=== PATIENT | female | born 1970 | race Caucasian/White ===

== ENCOUNTER 2019-08-24 13:05 | Outpatient (CLI) | payer OTHER, SELFPAY ==
--- NOTE | ~2019-08-24 | XR_ITS ---
XR foot LT standing 2V DATE: 08/24/2019 13:28 INDICATION: Left foot pain TECHNIQUE: AP and lateral standing views COMPARISON: None FINDINGS: No fracture or dislocation, periosteal reaction or bone destruction. IMPRESSION: Negative Reviewed, dictated and finalized at location A. IMPRESSION: Negative
== END 2019-08-24 13:06 | disposition home or self-care (01) ==
LOC: ANHIMG 13:11
PROVIDERS: PCP Nurse Practitioner; Visit Provider Nurse Practitioner
DX: M79.672 Pain in left foot (principal)
CPT/HCPCS: 73620

== ENCOUNTER 2019-10-05 11:40 | Outpatient (CLI) | payer OTHER, SELFPAY | END 2019-10-05 11:41 | disposition home or self-care (01) | LOC: ANHLAB 11:42 | PROVIDERS: PCP Nurse Practitioner; Visit Provider Family Medicine | DX: R30.0 Dysuria (principal) | CPT/HCPCS: 87086; 87088 ==

== ENCOUNTER 2020-05-24 12:29 | Outpatient (CLI) | payer OTHER, SELFPAY ==
[2020-05-24 13:20] LABS: Hemoglobin 14.2 g/dL (12.0-15.0); Mean Corpuscular HGB Conc 33.8 g/dl (32-36); Mean Corpuscular Hemoglobin 30.7 pg (26-34); Mean Corpuscular Volume 90.9 fl (80-100); Mean Platelet Volume 11.1 fl (7.4-10.4); Platelet Count Result 225 k/mm3 (150-375); Red Blood Count 4.62 M/mm3 (4.2-5.4); White Blood Count 6.2 K/mm3 (4.5-10.0)
[2020-05-24 13:29] LABS: Cholesterol 178 mg/dL (0-200); HDL Direct 79 mg/dL; Triglycerides 81 mg/dL (<150)
[2020-05-24 13:35] LABS: Alanine Aminotransferase 30 U/L (4-35); Albumin Level 4.6 g/dL (3.5-5.1); Alkaline Phosphatase 49 U/L (38-126); Anion Gap 8 mmol/L (8-16); Aspartate Amino Transferase 39 U/L (14-36); Bilirubin,Total 0.5 mg/dL (0.2-1.3); Blood Urea Nitrogen 14 mg/dL (7-17); Calcium 9.2 mg/dL (8.4-10.2); Carbon Dioxide 28 mmol/L (22-30); Chloride 104 mmol/L (98-107); Estimated Glomerular Filt Rate > 60; Glucose 72 mg/dL (65-105); Sodium 140 mmol/L (137-145)
[2020-05-24 13:40] LABS: LDL Cholesterol Direct 72 mg/dL
[2020-05-24 14:07] LABS: Vitamin D 25 Hydroxy 55.3 ng/mL
[2020-05-24 14:08] LABS: Free T4 Free Thyroxine 1.06 ng/mL (0.78-2.19)
== END 2020-05-24 12:30 | disposition home or self-care (01) ==
PROVIDERS: PCP Nurse Practitioner; Visit Provider Internal Medicine Endocrinology, Diabetes & Metabolism
DX: E55.9 Vitamin D deficiency, unspecified (principal); E05.90 Thyrotoxicosis, unspecified without thyrotoxic crisis or storm; Z13.6 Encounter for screening for cardiovascular disorders
CPT/HCPCS: 36415; 80053; 80061; 82306; 84439; 84443; 85027

== ENCOUNTER 2020-09-11 12:03 | Outpatient (CLI) | payer OTHER, SELFPAY ==
--- NOTE | ~2020-09-11 | MM_ITS ---
EXAMINATION: MM screening [facility] BI w roxanna HISTORY: Screening TECHNIQUE: Craniocaudal and mediolateral oblique 3-D tomosynthesis images were obtained and synthetic 2-D images were generated. CAD analysis was submitted and interpreted. COMPARISON: No prior mammogram is available for comparison at this institution. BREAST PARENCHYMAL COMPOSITION: The breasts are heterogeneously dense, which may obscure small masses . FINDINGS: There is no evidence of suspicious mass, calcification, or architectural distortion to sugg est malignancy in either breast. There has been no suspicious interval change. IMPRESSION: 1. No mammographic evidence of malignancy. 2. Recommend routine screening mammography in one year. BI-RADS Category 1: Negative Reviewed, dictated and finalized at location A.
== END 2020-09-11 12:04 | disposition home or self-care (01) ==
LOC: ANHIMG 12:04
PROVIDERS: PCP Nurse Practitioner; Visit Provider Nurse Practitioner Family
DX: Z12.31 Encounter for screening mammogram for malignant neoplasm of breast (principal)
CPT/HCPCS: 77063; 77067

== ENCOUNTER 2021-02-14 02:47 | Day surgery (SDC) | payer OTHER, SELFPAY ==
[2021-01-29 13:33] VITALS: BMI 20.8
--- NOTE | 2021-02-13 14:42 | P.PNAN_ITS ---
Anes - Initial Pre Proc Eval Procedure: Operation Date: 02/14/21 09:30 Proposed Procedures p Screening Colonoscopy - Jose Luis Luna MD Date/Time: 02/13/21 14:42 Surgeon: Jose Luis Luna MD Pre Op Diagnosis: Neoplasm Screening Patient Data Age: 50 Gender: F Height: 1.78 m Weight: 66 kg Allergies Allergy/AdvReac Type Severity Reaction Status Date / Time clindamycin Allergy Unknown Unknown Verified 02/14/21 08:51 Home Medications Medication Instructions Recorded Confirmed Type multivitamin 1 tablet PO DAILY 05/31/19 02/14/21 History mirabegron 25 mg tablet,extended 25 mg PO DAILY 10/31/19 02/14/21 History release 24 hr omeprazole magnesium 20 mg 20 mg PO DAILY #90 tablet 07/29/20 02/14/21 Rx tablet,delayed release rizatriptan 10 mg disintegrating 10 mg PO .COMPLEX PRN #30 tablet 07/29/20 02/14/21 Rx tablet L norgest/E estradiol-E estrad 1 tablet PO DAILY #91 ea 11/29/20 02/14/21 Rx 0.15 mg-30 mcg (84)/10 mcg(7) tabs,3mos methimazole 5 mg tablet 5 mg PO DAILY #90 tablet 12/02/20 02/14/21 Rx naproxen 500 mg tablet 500 mg PO BID #30 tablet 12/23/20 02/14/21 Rx Patient hx anesthesia problems: none Family hx anesthesia problems: none Results Review: All pre-operative results and documents have been reviewed as part of the pre-operative evaluation. [facility] Past Medical History Medical History (Updated 02/14/21 @ 08:58 by Jose Luis Luna MD) Anxiety GERD without esophagitis Hyperthyroidism (~2003) Follows with endocrine Lateral epicondylitis of right elbow Migraines OAB (overactive bladder) Follows with urology - Dr Bautista Peroneal tendinitis of left lower leg Vaginal delivery x2 Vision loss Weight loss Surgical History Surgical History Hx of cholecystectomy (~1993) [place] teeth extracted Family History Family History Grandparent Cerebrovascular accident Carcinoma of colon Other Afib Social History Social History Smoking status: Never smoker Alcohol intake: current Drinks per week: 7 Alcohol use details: wine with dinner Substance use: never Substance use type: does not use Living arrangements: with family 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[employer] Gender identity (if verbalized by the patient): Female Spiritual care concerns: No Anes - Eval Final PreProcedure Day of Procedure 02/13/21 14:42 Patient weight: normal Heart: regular rate and rhythm Lungs: clear to auscultation and normal air movement Airway: Mallampati scale class II Neurological: alert and oriented Last oral intake: >/= 8 hours ASA classification: II Emergent: no Anesthetic plan: proceed Anesthesia type and monitoring: general GIVS and standard monitoring Results Review: All pre-operative results and documents have been reviewed as part of the pre-operative evaluation. Informed Consent: The patient's anesthetic plan and its attendant risks and benefits were discussed with the patient/family/POA. Questions were solicited and answers provided to the satisfaction of the patient/family/POA.
[2021-02-14] MEDS: LACTATED RINGERS 1,000 ML 150 ML IV CONT (08:45)
[2021-02-14 08:53] VITALS: BP 112/78; PULSE 73; RESP 16; TEMP 37; O2SAT 100; BMI 20.8
--- NOTE | 2021-02-14 08:56 | WPDGICN ---
Assessment and Plan Assessment and plan (1) Family history of colonic polyps: Code(s): Z83.71 - Family history of colonic polyps Status: Acute Assessment and Plan: Patient presents for screening colonoscopy. Family history is significant father had colon polyps grandmother had colon cancer. Further recommendations will be given after endoscopy. GI Consult Note Consult date/time: 02/14/21 08:56 HPI: Shivani Mondragon is a 50 year old female Presents for screening colonoscopy. Patient's current weight appetite bowel movements are normal. She denies abdominal pain. She has had no bleeding. She has never had a previous exam. Patient's family history is significant her father had colon polyps her grandmother had colon cancer. She presents today for neoplasia screening. Review of Systems Review of Systems: All systems reviewed & are unremarkable except as noted in HPI and below PMFSH Past Medical History Medical History (Updated 02/14/21 @ 08:58 by Jose Luis Luna MD) Anxiety GERD without esophagitis Hyperthyroidism (~2003) Follows with endocrine Lateral epicondylitis of right elbow Migraines OAB (overactive bladder) Follows with urology - Dr Bautista Peroneal tendinitis of left lower leg Vaginal delivery x2 Vision loss Weight loss Surgical History Surgical History Hx of cholecystectomy (~1993) [place] teeth extracted Family History Family History Grandparent Cerebrovascular accident Carcinoma of colon Other Afib Social History Social History Smoking status: Never smoker Alcohol intake: current Drinks per week: 7 Alcohol use details: wine with dinner Substance use: never Substance use type: does not use Living arrangements: with family 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[employer] Gender identity (if verbalized by the patient): Female Spiritual care concerns: No Meds Home Medications and Allergies Home Medications Medication Instructions Recorded Confirmed Type multivitamin 1 tablet PO DAILY 05/31/19 02/14/21 History mirabegron 25 mg tablet,extended 25 mg PO DAILY 10/31/19 02/14/21 History release 24 hr omeprazole magnesium 20 mg 20 mg PO DAILY #90 tablet 07/29/20 02/14/21 Rx tablet,delayed release rizatriptan 10 mg disintegrating 10 mg PO .COMPLEX PRN #30 tablet 07/29/20 02/14/21 Rx tablet L norgest/E estradiol-E estrad 1 tablet PO DAILY #91 ea 11/29/20 02/14/21 Rx 0.15 mg-30 mcg (84)/10 mcg(7) tabs,3mos methimazole 5 mg tablet 5 mg PO DAILY #90 tablet 12/02/20 02/14/21 Rx naproxen 500 mg tablet 500 mg PO BID #30 tablet 12/23/20 02/14/21 Rx Allergies Allergy/AdvReac Type Severity Reaction Status Date / Time clindamycin Allergy Unknown Unknown Verified 02/14/21 08:51 Vital Signs Vital Signs - 24 hr 02/14/21 08:53 Temperature 98.6 F Pulse Rate 73 Respiratory Rate 16 Blood Pressure 112/78 Pulse Oximetry 100 Exam Narrative: Physical exam reveals patient to be alert. Vital signs stable. HEENT exam is unremarkable. Patient is anicteric. Lungs are clear to auscultation and percussion. Heart is without murmur or extra sounds. Abdominal exam bowel sounds are present soft nontender with no organomegaly. Digital external rectal exam is normal.
[2021-02-14 09:49] VITALS: BP 85/60; PULSE 68; RESP 36; O2SAT 100
[2021-02-14 09:59] VITALS: BP 107/71; PULSE 65; RESP 21; O2SAT 100
[2021-02-14 10:09] VITALS: BP 109/71; PULSE 72; RESP 22; O2SAT 100
== END 2021-02-14 10:11 | disposition home or self-care (01) ==
PROVIDERS: PCP Nurse Practitioner; Visit Provider Internal Medicine Gastroenterology
PROC: 0DJD8ZZ Inspection of Lower Intestinal Tract, Via Natural or Artificial Opening Endoscopic (ICD-10-PCS; CPT 45378; principal; 2021-02-14 09:30)
DX: Z12.11 Encounter for screening for malignant neoplasm of colon (principal); Z83.71 Family history of colonic polyps; K64.8 Other hemorrhoids; F41.9 Anxiety disorder, unspecified; K21.9 Gastro-esophageal reflux disease without esophagitis; N32.81 Overactive bladder; E05.90 Thyrotoxicosis, unspecified without thyrotoxic crisis or storm
CPT/HCPCS: 45378; J2704; J7120

== ENCOUNTER 2021-03-10 11:26 | Outpatient (CLI) | payer OTHER, SELFPAY ==
[2021-03-10 11:50] LABS: Alanine Aminotransferase 32 U/L (4-35); Albumin Level 4.2 g/dL (3.5-5.1); Alkaline Phosphatase 43 U/L (38-126); Anion Gap 4 mmol/L (8-16); Aspartate Amino Transferase 35 U/L (14-36); Bilirubin,Total 0.7 mg/dL (0.2-1.3); Blood Urea Nitrogen 12 mg/dL (7-17); Calcium 9.2 mg/dL (8.4-10.2); Carbon Dioxide 24 mmol/L (22-30); Chloride 106 mmol/L (98-107); Estimated Glomerular Filt Rate > 60; Glucose 121 mg/dL (65-110); Potassium 4.1 mmol/L (3.4-5.0); Sodium 134 mmol/L (137-145)
[2021-03-10 12:14] LABS: Free T4 Free Thyroxine 1.12 ng/mL (0.78-2.19)
== END 2021-03-10 11:27 | disposition home or self-care (01) ==
LOC: ANHLAB 11:28
PROVIDERS: PCP Nurse Practitioner; Visit Provider Internal Medicine Endocrinology, Diabetes & Metabolism
DX: E05.90 Thyrotoxicosis, unspecified without thyrotoxic crisis or storm (principal)
CPT/HCPCS: 36415; 80053; 84439

== ENCOUNTER 2021-04-07 11:55 | Outpatient (CLI) | payer OTHER, SELFPAY ==
[2021-04-07 13:10] LABS: HIV 1/2 Ab P24 Ag 30.5
[2021-04-07 14:04] LABS: HIV 1/2 Ab P24 Ag Result Reactive (Negative)
[2021-04-09 08:48] LABS: HIV 1 2 Ag Ab 4th Gen w Rflxs Non-reactive (Non-reactive)
== END 2021-04-07 11:56 | disposition home or self-care (01) ==
LOC: ANHLAB 11:57
PROVIDERS: PCP Nurse Practitioner; Visit Provider Obstetrics & Gynecology
DX: B37.9 Candidiasis, unspecified (principal)
CPT/HCPCS: 36415; 83036; 86703; 87389; G0432

== ENCOUNTER 2021-04-25 08:23 | Outpatient (CLI) | payer OTHER, SELFPAY ==
[2021-04-25 09:48] LABS: Thyroid Stimulating Hormone 0.552 uIU/mL (0.465-4.680)
[2021-04-29 14:31] LABS: Triiodothyronine T3 Free 3.4 pg/mL (2.3-4.2)
== END 2021-04-25 08:24 | disposition home or self-care (01) ==
LOC: ANHLAB 08:25
PROVIDERS: PCP Nurse Practitioner; Visit Provider Internal Medicine Endocrinology, Diabetes & Metabolism
DX: E05.90 Thyrotoxicosis, unspecified without thyrotoxic crisis or storm (principal); E04.9 Nontoxic goiter, unspecified
CPT/HCPCS: 36415; 84439; 84443; 84481

== ENCOUNTER 2021-08-12 15:10 | Outpatient (CLI) | payer OTHER, SELFPAY ==
[2021-08-12 16:02] LABS: Thyroid Stimulating Hormone < 0.015 uIU/mL (0.465-4.680)
[2021-08-12 17:00] LABS: Free T4 Free Thyroxine 3.88 ng/mL (0.78-2.19)
[2021-08-14 12:34] LABS: Triiodothyronine T3 Free 10.9 pg/mL (2.3-4.2)
== END 2021-08-12 15:11 | disposition home or self-care (01) ==
LOC: ANHLAB 15:11
PROVIDERS: PCP Family Medicine; Visit Provider Internal Medicine Endocrinology, Diabetes & Metabolism
DX: E05.00 Thyrotoxicosis with diffuse goiter without thyrotoxic crisis or storm (principal); E04.9 Nontoxic goiter, unspecified
CPT/HCPCS: 36415; 84439; 84443; 84481

== ENCOUNTER 2021-08-16 23:20 | Emergency (ER) | payer OTHER, SELFPAY ==
[2021-08-16 23:22] VITALS: BP 108/60; PULSE 100; RESP 20; TEMP 36.3; O2SAT 99
[2021-08-16 23:45] LABS: Basophils Percent Auto 0.5 % (0.2-1.2); Eosinophils Absolute Auto 0.1 K/mm3 (0-0.3); Immature Granulocyte Absolute 0.01 K/mm3 (0.00-0.031); Immature Granulocyte Percent A 0.3 % (0-0.5); Lymphocytes Absolute Auto 0.59 K/mm3 (0.9-3.2); Lymphocytes Percent Auto 14.8 % (18.3-44.2); Mean Corpuscular HGB Conc 34.2 g/dl (32-36); Mean Corpuscular Hemoglobin 30.4 pg (26-34); Mean Platelet Volume 10.6 fl (7.4-10.4); Monocytes Absolute Auto 0.3 K/mm3 (0.1-0.6); Monocytes Percent Auto 8.3 % (2.6-8.5); Neutrophils Percent Auto 74.1 % (45.5-73.1); Platelet Count Result 167 k/mm3 (150-375); Red Blood Count 4.27 M/mm3 (4.2-5.4)
[2021-08-16 23:46] LABS: Appearance Urine Clear (Clear); Bilirubin Urine Negative (Negative); Blood Urine Trace-lysed (Negative); Color Urine Yellow (Yellow); Glucose Urine UA Negative (Negative); Ketones Urine Trace mg/dL (Negative); Leukocyte Esterase Ur Trace LEU/UL (Negative); Nitrate Urine Positive (Negative); Protein Urine Negative (Negative); Specific Grav Ur 1.015 (1.001-1.035); Urobilinogen Urine 0.2 mg/dL (<2.0)
[2021-08-16 23:51] LABS: Bacteria Urine Trace /hpf; Mucus Urine Rare /lpf; RBC Urine 0-2 /hpf (0-2); Squamous Epithelial Cell Urine Few /hpf (Few)
[2021-08-16 23:58] LABS: Alanine Aminotransferase 44 U/L (6-35); Albumin Level 3.7 g/dL (3.5-5.1); Alkaline Phosphatase 55 U/L (38-126); Anion Gap 4 mmol/L (8-16); Aspartate Amino Transferase 47 U/L (14-36); Bilirubin,Total 0.8 mg/dL (0.2-1.3); Blood Urea Nitrogen 16 mg/dL (7-17); Calcium 8.6 mg/dL (8.4-10.2); Carbon Dioxide 25 mmol/L (22-30); Chloride 107 mmol/L (98-107); Estimated Glomerular Filt Rate > 60; Glucose 102 mg/dL (65-110); Lipase 109 U/L (23-300); Potassium 3.9 mmol/L (3.4-5.0); Sodium 136 mmol/L (137-145)
[2021-08-16 23:59] LABS: Add Urine Microscopic? YES
[2021-08-17] MEDS: ONDANSETRON INJ 4 MG/2 ML VIAL IV PUSH (00:46)
[2021-08-17] MEDS: SODIUM CHLORIDE 0.9% IV 1,000 ML 999 ML IV CONT (00:46)
[2021-08-17] MEDS: DICYCLOMINE HCL 10 MG CAPSULE 20 MG PO (01:15)
[2021-08-17 01:19] VITALS: BP 108/69; PULSE 91; RESP 16; O2SAT 100
--- NOTE | 2021-08-17 01:43 | ED.ABDPAIN ---
HPI - Abdominal Pain General Chief Complaint: Abdominal Pain Stated Complaint: Abd pain, n/v Time Seen by Provider: 08/17/21 00:29 Source: patient History of Present Illness HPI narrative: Patient presents with abdominal pain nausea vomiting and diarrhea. Patient ports symptoms started this morning and gotten progressively worse. Pain is across her entire abdomen is crampy, constant, no clear aggravating or alleviating factors and radiates to her back. Symptoms been associated again with nausea vomiting and diarrhea has been no blood bile or melena. Reports there is a boil order the city she lives and my recommendation is that they boil water patient has been doing so but continue to drink the water and is unsure if her symptoms are related to that. She has some neighbors and friends that were doing the same thing but got sick after drinking water as well. Patient denies any dysuria or increased urinary frequency but does report a foul odor to her urine. Related Data Home Medications Medication Instructions Recorded Confirmed multivitamin 1 tablet PO DAILY 05/31/19 06/24/21 mirabegron 50 mg tablet,extended 50 mg PO DAILY 06/23/21 06/24/21 release 24 hr Allergies Allergy/AdvReac Type Severity Reaction Status Date / Time clindamycin Allergy Unknown Unknown Verified 08/17/21 00:46 Review of Systems Review of Systems: CONSTITUTIONAL: Denies fever, chills, or sweats. EYES: Denies visual changes, redness, or discharge. ENT: Denies rhinorrhea, congestion, sore throat, or otalgia. CARDIOVASCULAR: Denies chest pain, palpitations, or edema. RESPIRATORY: Denies cough or dyspnea. GASTROINTESTINAL: Abdominal pain with nausea vomiting diarrhea GENITOURINARY: Denies dysuria or hematuria. SKIN: Denies rash or itching. MUSCULOSKELETAL: Denies back pain, joint pain, or myalgia. NEUROLOGIC: Denies headache, numbness, dizziness, or weakness. PSYCHIATRIC: Denies anxiety or depression. All systems reviewed & are unremarkable except as noted in HPI and below PMFSH Past Medical History Medical History Anxiety Family history of colonic polyps GERD without esophagitis Hyperthyroidism (~2003) Follows with endocrine Lateral epicondylitis of right elbow Migraines OAB (overactive bladder) Follows with urology - Dr Bautista Peroneal tendinitis of left lower leg Vaginal delivery x2 Vision loss Weight loss Surgical History Surgical History H/O colonoscopy Hx of cholecystectomy (~1993) [place] teeth extracted Family History Family History Grandparent Cerebrovascular accident Carcinoma of colon Other Afib Social History Social History Smoking status: Never smoker Alcohol intake: current Drinks per week: 7 Alcohol use details: wine with dinner Substance use: never Substance use type: does not use 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 HEAD: Normocephalic, atraumatic. EYES: PERRLA and EOMI. ENT: Nares clear, no rhinorrhea or epistaxis. Mucous membranes moist. NECK: Supple. No masses. No JVD ABDOMEN: Mild diffuse abdominal pain no rebound or guarding soft, nondistended EXTREMITIES: Normal range of motion. No edema. SKIN: Warm, dry, no rash. NEURO: No focal deficits. Alert and oriented x3. PSYCH: Normal mood and affect. Course Reevaluation(s) Reevaluation #1: Patient ports feeling much improved results and plan reviewed with patient. Patient is comfortable with outpatient plan. Date: 08/17/21 Time: :46 Vital Signs Vital signs: Vital Signs Temperature 36.3 C L 08/16/21 23:22 Pulse
[2021-08-17 02:17] VITALS: BP 102/65; PULSE 87; RESP 16; O2SAT 100
[2021-08-17] MEDS: CEPHALEXIN 500 MG CAPSULE PO (02:17)
== END 2021-08-17 02:18 | disposition home or self-care (01) ==
PROVIDERS: Emergency Provider Emergency Medicine; PCP Family Medicine
DX: N39.0 Urinary tract infection, site not specified (principal); R11.2 Nausea with vomiting, unspecified; R10.84 Generalized abdominal pain; R19.7 Diarrhea, unspecified; E05.90 Thyrotoxicosis, unspecified without thyrotoxic crisis or storm; N32.81 Overactive bladder; K21.9 Gastro-esophageal reflux disease without esophagitis
CPT/HCPCS: 36415; 80053; 81001; 81025; 83690; 85025; 87077; 87086; 87186; 96361; 96374; 99284; A9270; J2405; J7030

== ENCOUNTER 2021-08-21 11:38 | Outpatient (CLI) | payer OTHER, SELFPAY ==
[2021-08-21 12:58] LABS: Thyroid Stimulating Hormone < 0.015 uIU/mL (0.465-4.680)
== END 2021-08-21 11:39 | disposition home or self-care (01) ==
LOC: ANHLAB 11:40
PROVIDERS: PCP Family Medicine; Visit Provider Internal Medicine Endocrinology, Diabetes & Metabolism
DX: E05.90 Thyrotoxicosis, unspecified without thyrotoxic crisis or storm (principal)
CPT/HCPCS: 36415; 84443; 84481

== ENCOUNTER 2021-08-30 07:12 | Outpatient (CLI) | payer OTHER, SELFPAY ==
[2021-08-30 07:57] LABS: Basophils Percent Auto 0.8 % (0.2-1.2); Eosinophils Absolute Auto 0.1 K/mm3 (0-0.3); Eosinophils Percent Auto 3.1 % (0-4.4); Hematocrit 37.9 % (37.0-47.0); Hemoglobin 12.7 g/dL (12.0-15.0); Lymphocytes Absolute Auto 1.42 K/mm3 (0.9-3.2); Lymphocytes Percent Auto 39.8 % (18.3-44.2); Mean Corpuscular HGB Conc 33.5 g/dl (32-36); Mean Corpuscular Hemoglobin 29.6 pg (26-34); Mean Corpuscular Volume 88.3 fl (80-100); Mean Platelet Volume 10.9 fl (7.4-10.4); Monocytes Absolute Auto 0.3 K/mm3 (0.1-0.6); Monocytes Percent Auto 9.5 % (2.6-8.5); Neutrophils Absolute Auto 1.7 K/mm3 (1.3-6.7); Neutrophils Percent Auto 46.8 % (45.5-73.1); Platelet Count Result 207 k/mm3 (150-375); Red Blood Count 4.29 M/mm3 (4.2-5.4); White Blood Count 3.6 K/mm3 (4.5-10.0)
[2021-08-30 08:09] LABS: Alanine Aminotransferase 42 U/L (6-35); Albumin Level 3.9 g/dL (3.5-5.1); Alkaline Phosphatase 52 U/L (38-126); Anion Gap 4 mmol/L (8-16); Aspartate Amino Transferase 32 U/L (14-36); Bilirubin,Total 0.9 mg/dL (0.2-1.3); Blood Urea Nitrogen 16 mg/dL (7-17); Calcium 9.2 mg/dL (8.4-10.2); Carbon Dioxide 25 mmol/L (22-30); Chloride 110 mmol/L (98-107); Cholesterol 115 mg/dL (0-200); Estimated Glomerular Filt Rate > 60; Glucose 96 mg/dL (65-110); HDL Direct 37 mg/dL; Potassium 3.9 mmol/L (3.4-5.0); Sodium 139 mmol/L (137-145); Triglycerides 59 mg/dL (<150)
[2021-08-30 08:20] LABS: LDL Cholesterol Direct 45 mg/dL
[2021-08-30 08:40] LABS: Thyroid Stimulating Hormone < 0.015 uIU/mL (0.465-4.680)
[2021-08-30 09:17] LABS: Vitamin D 25 Hydroxy 58.5 ng/mL
== END 2021-08-30 07:13 | disposition home or self-care (01) ==
PROVIDERS: Internal Medicine Endocrinology, Diabetes & Metabolism; PCP Family Medicine; Visit Provider Nurse Practitioner
DX: R53.83 Other fatigue (principal); Z13.6 Encounter for screening for cardiovascular disorders; Z13.220 Encounter for screening for lipoid disorders; E55.9 Vitamin D deficiency, unspecified; E05.90 Thyrotoxicosis, unspecified without thyrotoxic crisis or storm
CPT/HCPCS: 36415; 80053; 80061; 82306; 84443; 85025

== ENCOUNTER 2021-12-20 09:33 | Outpatient (CLI) | payer OTHER, SELFPAY ==
--- NOTE | ~2021-12-20 | MM_ITS ---
EXAMINATION: MM screening [facility] BI w roxanna HISTORY: Screening TECHNIQUE: Craniocaudal and mediolateral oblique 3-D tomosynthesis images were obtained and synthetic 2-D images were generated. CAD analysis was submitted and interpreted. COMPARISON: 09/11/2020 BREAST PARENCHYMAL COMPOSITION: The breasts are heterogeneously dense, which may obscure small masses FINDINGS: There is a new mass in the lower outer quadrant of the left breast anteriorly which is obsc ured by fibroglandular tissue. The right breast is stable without evidence for malignancy. IMPRESSION: 1. New left breast mass anteriorly in the upper outer quadrant. 2. Additional mammographic views and possible breast ultrasound are recommended. BI-RADS Category 0: Incomplete: Needs additional imaging evaluation. Reviewed, dictated and finalized at location A. OR MORTGAGE UNDERWRITER IMPRESSION: 1. New left breast mass anteriorly in the upper outer quadrant. 2. Additional mammographic views and possible breast ultrasound are recommended . BI-RADS Category 0: Incomplete: Needs additional imaging evaluation.
== END 2021-12-20 09:34 | disposition home or self-care (01) ==
PROVIDERS: PCP Family Medicine; Visit Provider Obstetrics & Gynecology
DX: Z12.31 Encounter for screening mammogram for malignant neoplasm of breast (principal); R92.8 Other abnormal and inconclusive findings on diagnostic imaging of breast
CPT/HCPCS: 77063; 77067

== ENCOUNTER 2022-01-16 13:53 | Outpatient (CLI) | payer OTHER, SELFPAY ==
--- NOTE | ~2022-01-16 | MMUS_ITS ---
EXAMINATION: MM diagnostic [facility] LT w roxanna, US breast LT limited HISTORY: Left breast mass on screening mammogram TECHNIQUE: Additional 3-D tomosynthesis images of the left breast were performed and synthetic 2-D im ages were generated. CAD analysis was submitted and interpreted. High resolution limited left breast ultrasound was performed. COMPARISON: 12/20/2021, 09/11/2020 FINDINGS: MAMMOGRAPHIC FINDINGS: There is an 11 mm x 8 mm oval, obscured, low density mass in the outer breast at 3:00 location adjace nt to the nipple. No suspicious calcification or architectural distortion are identified. ULTRASOUND: There is a 1.8 x 1.4 x 0.5 cm cyst at the 3:00 location adjacent to the nipple corresponding to the m ammographic finding in question. IMPRESSION: 1. No mammographic or sonographic evidence of malignancy. 2. Recommend routine screening mammography in one year. BI-RADS Category 2: Benign finding(s). Reviewed, dictated and finalized at location A. MECHANIC IMPRESSION: 1. No mammographic or sonographic evidence of malignancy. 2. Recommend routine screening mammography in one year. BI-RADS Category 2: Benign finding(s).
== END 2022-01-16 13:54 | disposition home or self-care (01) ==
LOC: ANHIMG 13:54
PROVIDERS: PCP Family Medicine; Visit Provider Obstetrics & Gynecology
DX: R92.8 Other abnormal and inconclusive findings on diagnostic imaging of breast (principal)
CPT/HCPCS: 76642; 77061; 77065; G0279

== ENCOUNTER 2023-06-14 13:24 | Outpatient (CLI) | payer OTHER, SELFPAY ==
--- NOTE | ~2023-06-14 | MM_ITS ---
EXAMINATION: MM screening [facility] BI w roxanna HISTORY: Screening mammogram TECHNIQUE: Craniocaudal and mediolateral oblique 3-D tomosynthesis images were obtained and synthetic 2-D images were generated. CAD analysis was submitted and interpreted. COMPARISON: 01/16/2022 diagnostic right mammogram, Limited left breast ultrasound 12/20/2021, 09/11/2020 bilateral screening mammogram examinations BREAST PARENCHYMAL COMPOSITION: The breasts are heterogeneously dense, which may obscure small masses . FINDINGS: Right breast: There is no evidence of suspicious mass, calcification, or architectural distortion to suggest malignancy in the right breast breast. There has been no suspicious interval change. Left breast: Anterior circumscribed approximate 1 cm mass with halo sign is suggested in the lower inner left [address]. Smaller focal asymmetry is suggested posteriorly in the posterior outer mid left breast. Diagnostic left mammogram and left breast ultrasound examination are recommended. IMPRESSION: 1. Left breast mass and focal asymmetry 2. Diagnostic left mammogram and left breast ultrasound examination recommended BI-RADS Category 0: Incomplete: Needs additional imaging evaluation. Reviewed, dictated and finalized at location B.
== END 2023-06-14 13:25 | disposition home or self-care (01) ==
LOC: ANHIMG 13:28
PROVIDERS: PCP Nurse Practitioner Family; Visit Provider Obstetrics & Gynecology
DX: Z12.31 Encounter for screening mammogram for malignant neoplasm of breast (principal); R92.8 Other abnormal and inconclusive findings on diagnostic imaging of breast
CPT/HCPCS: 77063; 77067

== ENCOUNTER 2023-07-09 11:26 | Outpatient (CLI) | payer OTHER, SELFPAY ==
--- NOTE | ~2023-07-09 | MMUS_ITS ---
EXAMINATION: MM diagnostic [facility] LT w roxanna, US breast LT complete HISTORY: Follow-up left breast asymmetries TECHNIQUE: Additional 3-D tomosynthesis images of the left breast were performed and synthetic 2-D im ages were generated. CAD analysis was submitted and interpreted. High resolution complete left breast ultrasound was performed. COMPARISON: Comparison to multiple prior studies sequentially, with oldest reviewed study dated 05/2020. BREAST PARENCHYMAL COMPOSITION: Not dense: There are scattered areas of fibroglandular density. FINDINGS: MAMMOGRAPHIC FINDINGS: There are no suspicious masses, calcifications or architectural distortion in the left breast to sugg est malignancy. ULTRASOUND: Complete US of all 4 quadrants of the left breast and retroareolar region was reviewed. At 3:00 near the nipple there is a 1.5 cm cyst. At 1:00, 1 cm from the nipple there is a 7 mm cyst. No suspicious masses to suggest malignancy. IMPRESSION: 1. No evidence for malignancy in the left breast. Benign findings. 2. Routine yearly screening mammogram and regular clinical breast examination are recommended. BI-RADS Category 2: Benign finding(s). Reviewed, dictated and finalized at location B. IMPRESSION: 1. No evidence for malignancy in the left breast. Benign findings. 2. Routine yearly screening mammogram and regular clinical breast examination a re recommended. BI-RADS Category 2: Benign finding(s).
== END 2023-07-09 11:27 | disposition home or self-care (01) ==
LOC: ANHIMG 11:27
PROVIDERS: PCP Nurse Practitioner Family; Visit Provider Obstetrics & Gynecology
DX: R92.8 Other abnormal and inconclusive findings on diagnostic imaging of breast (principal)
CPT/HCPCS: 76641; 77061; 77065; G0279

== ENCOUNTER 2023-10-22 12:30 | Outpatient (CLI) | payer OTHER, SELFPAY ==
--- NOTE | ~2023-10-22 | XR_ITS ---
XR knee LT min 4V Ordering provider: Naomie Grubbs MD History: . CHRONIC ANTERIOR/SUPERIOR KNEE PAIN . Comparison: None. FINDINGS: BONES: No acute fracture or dislocation. JOINT SPACES: Normal. SOFT TISSUES: Normal. IMPRESSION: No acute osseous abnormality left knee. Reviewed, dictated and finalized at location A.
--- NOTE | ~2023-10-22 | XR_ITS ---
EXAMINATION: XR knee RT min 4V DATE: 10/22/2023 13:04 INDICATION: Chronic anterior and superior right knee pain TECHNIQUE: Weight bearing anteroposterior and Castellano, sunrise, and flexed lateral views of the rig ht knee were obtained COMPARISON: None. FINDINGS: Alignment is normal. No fracture. Joint spaces are normal. No joint effusion/layering lipohemarthros is. Soft tissues are unremarkable. IMPRESSION: 1. Negative right knee radiographs. Reviewed, dictated and finalized at location B.
== END 2023-10-22 12:31 | disposition home or self-care (01) ==
PROVIDERS: PCP Family Medicine; Visit Provider Family Medicine
DX: M25.561 Pain in right knee (principal); M25.562 Pain in left knee; G89.29 Other chronic pain
CPT/HCPCS: 73564

== ENCOUNTER 2024-04-17 14:43 | Outpatient (CLI) | payer OTHER, SELFPAY ==
--- NOTE | ~2024-04-17 | MR_ITS ---
EXAMINATION: MR knee RT wo con DATE: 04/17/2024 15:27 INDICATION: Right knee pain. TECHNIQUE: Magnetic resonance imaging (MRI) of the right knee was performed without intravenous contr ast. Sequences included axial PD-weighted FS FSE, coronal PD-weighted FSE and PD-weighted FS FSE, sag ittal PD-weighted FSE, and sagittal T2-weighted FS FSE. COMPARISON: Right knee radiographs 10/22/2023 FINDINGS: Medial compartment: Medial meniscus is normal. Medial compartment cartilage is normal. There are subchondral cysts of fem oral condyle involving the posterior medial articular surface. Lateral compartment: Lateral meniscus is normal. There is deep partial thickness causes loss of tibial condyle posteriorly with moderate subchondral edema-like marrow signal intensity. There is cartilage surface irregularit y of femoral condyle. Patellofemoral compartment: There is deep partial-thickness cartilage loss of patellar medial and lateral facets and median ridge with mild subchondral edema-like marrow signal intensity. There is shallow partial thickness causes loss of trochlea. Osteophytes are noted. Ligaments and tendons: The anterior and posterior cruciate ligaments are normal. Medial collateral ligament and lateral ashley ateral ligament complex are normal. There is mild patellar tendinopathy. Fluid: No knee joint effusion. There is mild prepatellar and superficial infrapatellar bursitis. There is mi ld pes anserinus bursitis. IMPRESSION: 1. 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 Reviewed, dictated and finalized at location B.
--- NOTE | ~2024-04-17 | MR_ITS ---
EXAMINATION: MR knee LT wo con DATE: 04/17/2024 15:30 INDICATION: Left knee pain. TECHNIQUE: Magnetic resonance imaging (MRI) of the left knee was performed without intravenous contra st. Sequences included axial PD-weighted FS FSE, coronal PD-weighted FSE and PD-weighted FS FSE, sagi ttal PD-weighted FSE, and sagittal T2-weighted FS FSE. COMPARISON: Left knee radiographs 10/22/2023 FINDINGS: Medial compartment: Medial meniscus is normal. Medial compartment cartilage is normal. There are subchondral cysts involv ing femoral condyle in its posterior medial aspect. Given the normal appearing cartilage, this findin g may be an intraosseous ganglion. Lateral compartment: Lateral meniscus is normal. Lateral compartment cartilage is normal. There are tiny osteophytes. Patellofemoral compartment: There is deep partial-thickness cartilage loss of patellar median ridge and adjacent aspects of media l and lateral facets with mild subchondral edema-like marrow signal intensity. There is cartilage jackie face irregularity of trochlea. There are tiny osteophytes. Ligaments and tendons: The anterior and posterior cruciate ligaments are normal. Medial collateral ligament and lateral ashley ateral ligament complex are normal. There is mild patellar tendinopathy. Fluid: There is a small knee joint effusion. IMPRESSION: 1. Moderate chondrosis of patellofemoral compartment. 2. Small knee joint effusion. Reviewed, dictated and finalized at location B.
== END 2024-04-17 14:44 | disposition home or self-care (01) ==
LOC: MICIMG 14:44
PROVIDERS: PCP Nurse Practitioner Family; Visit Provider Nurse Practitioner Family
DX: M22.42 Chondromalacia patellae, left knee (principal); M22.41 Chondromalacia patellae, right knee; M25.462 Effusion, left knee
CPT/HCPCS: 73721

== ENCOUNTER 2024-08-09 13:52 | Outpatient (CLI) | payer OTHER, SELFPAY ==
--- NOTE | ~2024-08-09 | MM_ITS ---
EXAMINATION: MM screening williams BI w roxanna HISTORY: Screening mammogram TECHNIQUE: Craniocaudal and mediolateral oblique 3-D tomosynthesis images were obtained and synthetic 2-D images were generated. CAD analysis was submitted and interpreted. COMPARISON: 06/14/2023, 12/20/2021, 09/11/2020 BREAST PARENCHYMAL COMPOSITION:Dense: The breasts are heterogeneously dense, which may obscure small masses. FINDINGS: No suspicious mass, calcification, or architectural distortion are identified in either carmita ast to suggest malignancy. There has been no suspicious interval change. IMPRESSION: No mammographic evidence of malignancy. Recommend routine screening mammography in one year. BI-RADS Category 1: Negative Reviewed, dictated and finalized at location .
--- OUTSIDE RECORDS SUMMARY | 2024-08-09 13:56 | XMS_ITS | Clinical Summary ---
Author Organization [facility] Address [address] [place] [address] Care Team Providers Care Astrophysics Professor Name Role Phone Mireille Ewing MD Unavailable [phone] Xiomy Gary MANAGER COMPANY-ASSOCIATE MANAGER AFFILIATE MARKETING Primary Care Provider [phone] Source Comments [facility],non-owned Affiliates and Associated Physician Practices is amultiple site organization consisting of ambulatory clinics and hospital sitesin [place], [place], [place] and [place]. This disclosure is being madepursuant to the Care Everywhere program and may not contain all information available regarding this patient. Last updated 17.[facility] [employer] Allergies No known active allergies Medications * Be aware that medications may not be up to date on this document. Alwaysverify current medications with the patient. methIMAzole (TAPAZOLE) 5 MG tablet Take 1 tablet by mouth once daily 02/27/2021 Active norethindrone (ORTHO MICRONOR; NOR-QD; ASH; LASHONDA; PRINCESS-BE; RICARDO; JOLIVETTE) 0.35 MG tablet Take 1 tablet by mouth once daily 08/08/2020 Active omeprazole (PRILOSEC) 20 MG capsule 02/26/2021 Active rizatriptan, disintegrating, (MAXALT AUTOMATIC CASTING MACHINE OPERATOR) 10 MG tablet as needed 02/26/2021 Active Social History Tobacco Use Types Packs/Day Years Used Date Smoking Tobacco: Never Smokeless Tobacco: Never Alcohol Use Standard Drinks/Week Comments Yes 1 (1 standard drink = 0.6 oz pur e alcohol) Comments Unknown Sex and Gender Information Value Date Recorded Sex Assigned at Not on file Legal Sex Female 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 Gender Identity Not on file Sexual Orientation Not on file Plan of Treatment Health Maintenance Due Date Last Done Comments COLOGUARD (AGES 45-75) - COL ON CA SCREENING 1972 COLON MONITORING 1972 COLONOSCOPY - COLON CA SCREENING 1972 CT COLONOGRAPHY - COLON CA SCREENING 1972 Colorectal Cancer Screening 1972 FIT - COLON CA SCREENING 1972 FLEX SIG - COLON CA SCREENING 1972 LIPID TESTING 1972 MAMMOGRAM 1972 HIV SCREENING 10/28/1987 HEPATITIS C SCREENING 10/23/1990 DTAP/TDAP/TD VACCINES (1 - Tdap) 10/28/1991 HEPATITIS B VACCINE (1 of 3 - 19+ 3-dose series) 10/28/1991 PAP SMEAR 1993 PNEUMOCOCCAL VACCINE 50+ (1 of 1 - PCV) 2022 ZOSTER VACCINE (1 of 2) 2022 COVID-19 VACCINE (1 - 2023-2 5 season) 2023 DEPRESSION SCREENING 02/09/2024 INFLUENZA VACCINE (Season Ended) 2024 HIB VACCINE Aged Out No longer eligi ble based on patient's age to complete this topic HPV VACCINE Aged Out No longer eligi ble based on patient's age to complete this topic MENINGOCOCCAL (Group B) VACC INE SHARED DECISION-MAKING Aged Out No longer eligibl e based on patient's age to complete this topic MENINGOCOCCAL GROUPS A/C/Y/W VACCINE Aged Out No longer eligible b ased on patient's age to complete this topic Insurance Care Teams Astrophysics Professor Relationship Specialty Start Date End Date Xiomy Gary, MANAGER COMPANY-ASSOCIATE MANAGER AFFILIATE MARKETING [address] [place] [id number] PCP - General Nurse Practitioner 04/15/21 Mireille Ewing MD [address] [phone] Endocrinology 04/15/21
== END 2024-08-09 13:53 | disposition home or self-care (01) ==
LOC: ANHIMG 13:53
PROVIDERS: PCP Family Medicine; Visit Provider Nurse Practitioner Obstetrics & Gynecology
DX: Z12.31 Encounter for screening mammogram for malignant neoplasm of breast (principal)
CPT/HCPCS: 77063; 77067

== ENCOUNTER 2024-11-17 02:20 | Day surgery (SDC) | payer OTHER, SELFPAY ==
[2024-11-13 10:44] VITALS: BMI 20.7
--- NOTE | 2024-11-13 10:46 | SUR.PREOP ---
[facility] has started construction of its new state of the art ER which will open Spring 2026. With this, we anticipate parking may be a challenge for some our surgical patients and families. Parking spaces are limited but are available for all Surgical, obstetrics, and ER patients sharing this lot. If you arrive and find you are having a hard time finding a parking space, please note that we understand the challenges, please drive around the hospital and park near Hospital Entrance 1. When you enter this entrance, you can ask a volunteer to direct or take you back to the surgical waiting area to check in. We appreciate everyone?s understanding of these expected challenges while we build for your future. Report to the Outpatient Waiting Room, entrance under the green pavilion located off [address], at time _7am on date _11/17/24 . Planned Procedure Time: ___9am .? Time changes happen often and if your time is changed the preop area will call you the afternoon before. - You and your visitor will be asked to self-screen and do not enter if you have any COVID symptoms. Please call surgeon if you need to reschedule. - A mask is optional within the hospital at this time. Patients may have clear liquids (water, carbonated beverages, clear teas, apple juice) until 3 hours prior to surgery with a maximum of 20 ounces. - No food from midnight until time of surgery and no smoking, or chewing tobacco (or any form of nicotine). No chewing gum, candy or mints. Take only the following medications with a SIP of water on the morning of surgery: atenolol, methimazole, maxalt if needed. DO NOT STOP ANY OF YOUR OTHER PRESCRIPTION MEDICATIONS PRIOR TO SURGERY EXCEPT THE FOLLOWING Hold all vitamins and supplements for 3 days per anesthesiologist. Medications to discontinue per physician Date to take last dose___11/13/24 Please no make-up, nail burmese, hairspray, perfume, deodorant, or body powder the day of surgery.? No jewelry (including any body piercings) or valuables the day of surgery, leave them at home.? Please take a shower or bath the night before, or the morning of, surgery with an antibacterial soap.? Wear comfortable, loose fitting clothing.? Children are encouraged to wear pajamas. - Jewelry must be removed prior to entering the operating room.? Rings and piercings that are not removed may be cut off. - The hospital will not accept responsibility for valuables.? - Please leave all valuables, including medications, at home the day of surgery. If you are going home after surgery, a licensed local company refrigerated truck driver must drive you home.? - NO public transportation without another adult if you receive anesthesia. - We recommend that an adult stay with you for 24 hours following discharge. - We also recommend that you do not drive, make important decision, drink alcoholic beverages, or take any drugs that were not prescribed by your health care provider for at least 24 hours after your discharge time. Follow any additional instructions given to you from your surgeon. Telephone instructions given to __Jeannette and asked if any additional questions and then verbalized understanding. Patient advised to call surgeon office or pre surgery nurse liaison [phone] if any additional questions.
[2024-11-17] VITALS (11 sets, daily range): BP systolic 89–119; BP diastolic 65–82; PULSE 47–70; RESP 10–16; TEMP 36.3–36.4; O2SAT 100
--- NOTE | 2024-11-17 07:23 | WPDHPUPDATE1 ---
History and Physical Update Update Date/Time: 11/17/24 07:23 History and Physical has been reviewed, including an updated exam of the patient. There are NO changes in the patient's condition. Risks, benefits, and alternatives have been discussed and questions answered. Patient agrees to proceed with procedure.
--- NOTE | 2024-11-17 07:50 | WPDANESEPP ---
Anes - Eval Pre Procedure Procedure: Operation Date: 11/17/24 09:00 Proposed Procedures p Right Knee Arthroscopy with Possible Lateral Release - Antione Huggins MD Date/Time: 11/17/24 07:50 Pre Op Diagnosis: Rt Knee Chondromalacia Patient Data Age: 54 Gender: F Height: 1.75 m Weight: 63.6 kg Allergies Allergy/AdvReac Type Severity Reaction Status Date / Time clindamycin Allergy Unknown Unknown Verified 11/13/24 10:27 Home Medications ?Medication ?Instructions ?Recorded ?Confirmed ?Type multivitamin 1 tablet PO DAILY 05/31/19 11/13/24 History mirabegron 50 mg tablet,extended 50 mg PO DAILY 06/23/21 11/13/24 History release 24 hr rizatriptan 10 mg disintegrating 10 mg PO .COMPLEX PRN migraine 04/04/24 11/13/24 Rx tablet headache #30 tabs amitriptyline 25 mg tablet 25 mg PO QHS #90 tabs 05/09/24 11/13/24 Rx meloxicam 7.5 mg tablet 7.5 mg PO DAILY #30 tabs 06/09/24 11/13/24 Rx omeprazole 20 mg capsule,delayed 20 mg PO DAILY #100 caps 06/12/24 11/13/24 Rx release atenolol 25 mg tablet 12.5 mg (1/2 x 25 mg) PO BID #90 06/19/24 11/13/24 Rx tabs methimazole 5 mg tablet 5 mg PO DAILY #90 tabs 06/19/24 11/13/24 Rx chlorhexidine gluconate 4 % 1 applic topical ONCE #237 mL 11/10/24 11/13/24 Rx topical liquid (Hibiclens) estradiol 1 mg tablet 1 mg PO DAILY 11/13/24 11/13/24 History progesterone micronized 100 mg 100 mg PO QPM 11/13/24 11/13/24 History capsule testosterone 40.5 mg topical DAILY 11/13/24 11/13/24 History hydrocodone 5 mg-acetaminophen 325 1 tablet PO Q12H PRN pain #20 tabs 11/17/24 Rx mg tablet Patient hx anesthesia problems: none Family hx anesthesia problems: none Results Review: All pre-operative results and documents have been reviewed as part of the pre-operative evaluation. [facility]LY [facility] Past Medical History Medical History Chondromalacia of knee Chronic patellofemoral pain Right knee pain Arthritis of both hips Family history of colonic polyps Anxiety Lateral epicondylitis of right elbow Vision loss OAB (overactive bladder) Follows with urology - Dr Bautista GERD without esophagitis Hyperthyroidism (~2003) Follows with endocrine Migraines Surgical History Surgical History H/O colonoscopy Vaginal delivery x2 Hx of cholecystectomy (~1993) [place] teeth extracted Family History Family History Grandparent Cerebrovascular accident Carcinoma of colon Other Afib Social History Social History Social History: Caffeine- coffee daily Smoking status: Never smoker Alcohol intake: current Drinks per week: 6 Alcohol use details: wine with dinner Substance use: never Substance use type: does not use Lack of Transportation: No Lack of Food: Never True Current Housing: I Have Housing Concerned About Future Housing: No Difficulty Paying Gas/Electric Bills: No Difficulty Paying for Meds: No Currently Unemployed: No Education: Associate Degree Difficulty w/ Childcare or Family Care: No Living arrangements: with family Occupation/Education: occupation Additional occupation/education comments: ikre at [employer] Gender identity (if verbalized by the patient): Female Spiritual care concerns: No Exam Day of Procedure 11/17/24 07:50 Patient weight: normal Heart: regular rate and rhythm Lungs: clear to auscultation Airway: Mallampati scale class II Neurological: alert and oriented
[2024-11-17] MEDS: CELECOXIB 200 MG CAPSULE PO (08:30)
[2024-11-17] MEDS: ACETAMINOPHEN 500 MG TABLET 1000 MG PO (08:30)
[2024-11-17] MEDS: LACTATED RINGERS 1,000 ML 30 ML IV CONT ×2 (08:30→10:18)
[2024-11-17] MEDS: ceFAZolin 2 GM in SODIUM CHLORIDE 0.9% IV 50 ML 100 ML IVPB (09:10)
--- NOTE | 2024-11-17 10:04 | P.PNAN_ITS ---
Anes - Eval Final PreProcedure Day of Procedure 11/17/24 10:04 Patient weight: normal Heart: regular rate and rhythm Lungs: clear to auscultation Airway: Mallampati scale class II Neurological: alert and oriented Last oral intake: >/= 8 hours ASA classification: III Emergent: no Anesthetic plan: proceed Anesthesia type and monitoring: general GIVS and standard monitoring Results Review: All pre-operative results and documents have been reviewed as part of the pre- operative evaluation. Informed Consent: The patient's anesthetic plan and its attendant risks and benefits were discussed with the patient/family/POA. Questions were solicited and answers provided to the satisfaction of the patient/family/POA.
--- NOTE | 2024-11-17 10:21 | W.PM.PROC2 ---
Procedure Note - Detailed Date of Procedure 11/17/24 Pre-op Diagnosis Rt Knee Chondromalacia Post-op Diagnosis Other (LATERAL MENISCUS TEAR. CHONDROMALACIA) Procedure Performed RIGHT KNEE SCOPE Surgeon Antione Huggins MD Anesthesia General Description of Procedure PATIENT WAS TAKEN TO THE OPERATING ROOM SUITE. ANESTHESIA WAS INDUCED. THE RIGHT LEG WAS PREPPED AND DRAPED STERILE. TROCARS WERE PLACED IN TO THE KNEE JOINT IN THE USUAL FASHION. THE CAMERA WAS INTRODUCED. THERE WAS SEVERE CHONDROMALACIA TO THE PATELLA FEMORAL JOINT. THERE WAS A LOT OF SYNOVITIS IN ALL COMPARTMENTS. THE MEDIAL COMPARTMENT SHOWED MINIMAL CHONDROMALACIA TO THE MEDIAL FEMORAL CONDYLE OR PLATEAU. THERE WAS NO MEDIAL MENISCUS TEAR. THE ACL WAS INTACT. THE LATERAL MENISCUS WAS TORN AT THE MID SUBSTANCE AND EXTENDED TO THE POSTERIOR HORN. THE TEAR WAS CONFINED TO THE WHITE ZONE AND WAS A COMPLEX TEAR. THE TEAR WAS RESECTED. THE LATERAL COMPARTMENT HAD MODERATE CHONDROMALACIA AT THE LATERAL PLATEAU AND LATERAL FEMORAL CONDYLE. A CHONDROPLASTY AND A SYNOVECTOMY WAS PREFORMED. THE PATELLO FEMORAL JOINT UNDERWENT CHONDROPLASTY OVER THE PATELLA AND TROCHLEA. THE PATELLA TRACKED WELL WITHOUT TILT. THERE WAS A SMALL NEAR FULL THICKNESS DEFECT AT THE ANTERIOR MEDIAL FEMORAL CONDYLE WHICH UNDERWENT CHONDROPLASTY. SYNOVECTOMY WAS PREFORMED IN THE SUPERIOR MEDIAL COMPARTMENT. THE WOUNDS WERE APPROXIMATED WITH 4.0 NYLON. STERILE DRESSING WAS APPLIED. PATIENT WAS EXTUBATED. Estimated Blood Loss 5 Complications No immediate complications Condition Stable Disposition PACU
[2024-11-17] MEDS: fentaNYL CITRATE INJ (*CRX) 100 MCG/2 ML VIAL 25 MCG IV PUSH ×6 (10:38→12:27)
[2024-11-17] MEDS: oxyCODONE HCL (*CRX) 5 MG TAB IR PO (11:39)
[2024-11-17] MEDS: ONDANSETRON INJ 4 MG/2 ML VIAL IV PUSH (13:03)
== END 2024-11-17 13:32 | disposition home or self-care (01) ==
PROVIDERS: PCP Family Medicine; Visit Provider Orthopaedic Surgery
PROC: (CPT 29870; principal; 2024-11-17 09:00)
DX: S83.281A Other tear of lateral meniscus, current injury, right knee, initial encounter (principal); M94.261 Chondromalacia, right knee; M65.861 Other synovitis and tenosynovitis, right lower leg; G89.29 Other chronic pain; K21.9 Gastro-esophageal reflux disease without esophagitis; M16.0 Bilateral primary osteoarthritis of hip; F41.9 Anxiety disorder, unspecified; N32.81 Overactive bladder; E05.90 Thyrotoxicosis, unspecified without thyrotoxic crisis or storm; X58.XXXA Exposure to other specified factors, initial encounter; Z79.891 Long term (current) use of opiate analgesic; Z98.890 Other specified postprocedural states; Z90.49 Acquired absence of other specified parts of digestive tract; Z83.719 Family history of colon polyps, unspecified; Z80.0 Family history of malignant neoplasm of digestive organs; Z82.49 Family history of ischemic heart disease and other diseases of the circulatory system
CPT/HCPCS: 29881; 29876; J0690; A9270; J1100; J1596; J2003; J2250; J2371; J2405; J2704; J3010; J7120